=== PATIENT | female | born 1970 | race Caucasian/White ===

== ENCOUNTER 2018-02-18 18:24 | Emergency (ER) | payer BC, MEDICAID ==
[~2018-02-18] VITALS: Ht 162.6 cm; Wt 80.0 kg
[2018-02-18 18:53] VITALS: BP 136/82
[2018-02-18 19:55] LABS: BASOPHILS % 0.5 % (0.0-2.0); HEMATOCRIT. 32.5 % (36.0-48.0); HEMOGLOBIN. 10.6 g/dL (12.0-16.0); LYMPHOCYTES % 29.6 % (20.0-50.0); MEAN CORPUSCULAR HEMOGLOBIN 23.7 pg (28.0-32.0); MEAN PLATELET VOLUME 7.7 fl (7.4-10.4); MONOCYTES % 6.6 % (2.0-8.0); NEUTROPHILS % 61.3 % (40.0-76.0); PLATELET 356 x1000/uL (130-400); RED BLOOD CELL COUNT 4.45 mill/uL (4.2-5.4)
[2018-02-18 19:59] LABS: CHLORIDE 105 mEq/L (98-107)
[2018-02-18 20:00] LABS: PROTHROMBIN TIME 10.8 sec (9.4-11.6)
[2018-02-18 20:11] LABS: HCG SCREEN NEGATIVE
== END 2018-02-19 00:49 | disposition left against medical advice (07) ==
LOC: ER 21:14
DX: R07.9 Chest pain, unspecified (principal)
CPT/HCPCS: 36415; 80053; 83880; 84484; 84703; 85025; 85610; 93005; 99285